=== PATIENT | male | born 1970 | race Caucasian/White ===

== ENCOUNTER 2020-06-27 10:18 | Outpatient (NON) | payer OTHER, SELFPAY ==
[2020-06-28 18:38] LABS: SARS-CoV-2 RNA PCR Negative
== END 2020-06-27 10:19 ==
LOC: ANHCOVIDDT 10:23
PROVIDERS: Visit Provider Family Medicine Adolescent Medicine
DX: R05 Cough (principal); Z20.828 Contact with and (suspected) exposure to other viral communicable diseases
CPT/HCPCS: 87635; C9803; U0003